=== PATIENT | female | born 1955 | race Caucasian/White ===

== ENCOUNTER → 2019-06-14 | Outpatient (CLI) | payer BC | END | disposition home or self-care (01) | LOC: RAH 08:44 | PROVIDERS: ATTEND Internal Medicine Cardiovascular Disease | DX: I37.1 Nonrheumatic pulmonary valve insufficiency (principal); I25.10 Atherosclerotic heart disease of native coronary artery without angina pectoris | CPT/HCPCS: 93306 ==

== ENCOUNTER → 2019-06-16 | Outpatient (CLI) | payer BC ==
[~2019-06-16] VITALS: Ht 165.1 cm; Wt 76.7 kg
[~2019-06-16] MED LIST: REGADENOSON 0.4 MG/5 ML PF SYG IVP SCH
== END | disposition home or self-care (01) ==
LOC: SHCH 09:05
PROVIDERS: ATTEND Internal Medicine Cardiovascular Disease
DX: I21.29 ST elevation (STEMI) myocardial infarction involving other sites (principal); I25.10 Atherosclerotic heart disease of native coronary artery without angina pectoris
CPT/HCPCS: 78452; 93017; 96374; A9500 ×2; J2785

== ENCOUNTER 2019-12-05 05:41 | Observation (INO) | payer BC ==
[2019-12-02 13:29] LABS: BASOPHILS % (AUTO) 0.8 % (0.0-5.0); EOSINOPHILS % (AUTO) 1.7 % (0.0-8.0); HEMATOCRIT 38.2 % (36-48); LYMPHOCYTES % (AUTO) 21.6 % (21.0-51.0); MEAN CORPUSCULAR HEMOGLOBIN 28.3 pg (27.0-33.0); MEAN CORPUSCULAR HGB CONC 32.2 g/dL (32.0-36.0); MEAN CORPUSCULAR VOLUME 87.8 fL (79-99); NEUTROPHILS % (AUTO) 68.6 % (40.0-77.0); PLATELET COUNT (AUTO) 263 K/uL (130-400); RED BLOOD CELL COUNT(AUTO) 4.35 MIL/uL (4.00-5.50); RED CELL DISTRIBUTION WIDTH 13.5 % (11.0-15.5)
[2019-12-02 13:51] LABS: CREATININE 0.9 mg/dL (0.5-1.5); POTASSIUM 4.7 mmol/L (3.5-5.1)
[2019-12-02 13:53] LABS: INR 0.96 (0.85-1.15); PARTIAL THROMBOPLASTIN TIME 24.1 SEC (26.3-35.5); PROTHROMBIN TIME 10.4 SEC (9.6-11.6)
[2019-12-02 14:02] VITALS: BP 193/75
[2019-12-02 14:11] LABS: APPEARANCE,URINE Clear (CLEAR); BILIRUBIN,URINE Negative (NEGATIVE); COLOR,URINE Yellow (YELLOW); GLUCOSE, URINE (UA) 500 mg/dL (NEGATIVE); KETONES,URINE Negative (NEGATIVE); LEUKOCYTE ESTERASE ,URINE Negative (NEGATIVE); NITRATE,URINE Negative (NEGATIVE); OCCULT BLOOD,URINE Negative (NEGATIVE); PH,URINE 7.5 (5.0-8.0); PROTEIN,URINE POS 1+ mg/dL (NEGATIVE); UROBILINOGEN,URINE 0.2 mg/dL (0.2-1.0)
[2019-12-02 14:24] LABS: BACTERIA,URINE None Seen /HPF (None Seen); MUCUS,URINE Few LPF (None Seen); RBC,URINE 0-1 /HPF (0-1); SQUAMOUS EPITHELIAL CELL,UR Few /HPF (0-2); WBC,URINE 0-1 /HPF (0-1)
[2019-12-05] VITALS (11 sets, daily range): BP systolic 135–198; BP diastolic 61–106
[~2019-12-05] VITALS: Ht 165.1 cm; Wt 77.5 kg
[~2019-12-05 05:41] MED LIST changes: +ACEB200 PO; +ASPI-556 PO; +CLOP75TA32 PO; +GABA-529 PO; +GLIM4TAB36 PO; +INSLAN SQ; +LEVO125T11 PO; +METF-446 PO; +PRAV40TA3 PO; +QUIN40TA19 PO; -REGADENOSON 0.4 MG/5 ML PF SYG IVP SCH
[2019-12-05] MEDS ORDERED: SODIUM CHLORIDE 0.9% 1000ML 1,000 ML IV ONE (06:04)
[2019-12-05] MEDS ORDERED: AEC81 PO (07:14)
[2019-12-05] MEDS ORDERED: IOHEXOL 350 MG/ML 100ML INFUS..BTL IV ONE (07:14)
[2019-12-05] MEDS ORDERED: LIDOCAINE HCL 2% 20ML ONE (07:14)
[2019-12-05] MEDS ORDERED: CLOP75TA14 PO (07:14)
[2019-12-05] MEDS ORDERED: IOHEXOL-350 50ML VIAL IV ONE ×2 (07:14→08:03)
[2019-12-05] MEDS ORDERED: HEPARIN SODIUM 1000UNIT/ML 10ML VIAL ONE (07:14)
[2019-12-05] MEDS ORDERED: MIDAZOLAM HCL 1 MG/ML 2ML VIAL ONE ×2 (07:32→07:46)
[2019-12-05] MEDS ORDERED: CLOPIDOGREL BISULFATE 75 MG TAB ONE (08:21)
[2019-12-05] MEDS ORDERED: ASPIRIN 81MG TAB.CHEW ONE (08:21)
[2019-12-05] MEDS ORDERED: ONDANSETRON HCL 4 MG/2 ML VIAL IVP PRN (08:45)
[2019-12-05] MEDS ORDERED: TEMAZEPAM 30 MG CAP PO PRN (08:45)
[2019-12-05] MEDS ORDERED: NITROGLYCERIN 50 MG/D5% WATER 1 BOT IV PRN (08:45)
[2019-12-05] MEDS ORDERED: ONDANSETRON HCL 4 MG/2 ML VIAL IVP SCH (08:45)
[2019-12-05] MEDS: PANTOPRAZOLE SODIUM 40 MG TABLET.DR PO SCH (09:00)
[2019-12-05] MEDS: CLOPIDOGREL BISULFATE 75 MG TAB PO SCH (09:00)
[2019-12-05] MEDS: ASPIRIN 81MG TAB.CHEW PO SCH (09:00)
--- NOTE | 2019-12-05 14:53 | NUR ---
CM NOTE/IA MEET WITH PATIENT IN ROOM. PER PATIENT, LIVES WITH SPOUSE AND MINOR CHILDREN AND MOTHER, INDEPENDENT WITH ADLS, HAS USE OF CANE AT TIMES, NO HOME HEALTH OR PROVIDER SERVICES, AND FEELS SAFE TO RETURN HOME ONCE DISCHARGED. Addendum: 12/05/19 at 1454 by TYRONE BARTON RN CM Amended: Links added. Addendum: 12/05/19 at 1455 by TYRONE BARTON RN CM ENTERED IN ERROR.
--- NOTE | 2019-12-05 14:56 | NUR ---
CM NOTE/IA MEET WITH PATIENT IN ROOM. PER PATIENT IS INDEPENDENT WITH ADLS, LIVES WITH SPOUSE AND ADULT SON, NO USE OF PROVIDER OR HOME HEALTH WELL DME, AND FEELS SAFE TO RETURN HOME ONCE DISCHARGED FROM HOSPITAL. Addendum: 12/05/19 at 1457 by TYRONE BARTON RN CM Amended: Links added.
[2019-12-05] MEDS: ACEBUTOLOL HCL 200 MG PO SCH (20:10)
[2019-12-05] MEDS: LISINOPRIL 40 MG TABLET PO SCH (20:12)
[2019-12-05] MEDS: GLIMEPIRIDE 2 MG TABLET PO SCH (20:13)
[2019-12-05] MEDS: GABAPENTIN 100 MG CAPSULE PO SCH (20:13)
[2019-12-05] MEDS: INSULIN HUMULIN R 100 UNIT/ML 3ML SQ SCH (20:24)
--- NOTE | 2019-12-05 20:25 | NUR ---
MEDS SHIFT ASSESSMENT DONE, PLEASE REFER TO CHART. DUE MEDS ADMINISTERED, TOLERATED WELL. KEPT RESTED AND COMFORTABLE CALL LIGHT WITHIN REACH. WILL MONITOR PT. Addendum: 12/05/19 at 2323 by LALA KRAMER RN RN Amended: Links added.
[2019-12-05] MEDS ORDERED: ATORVASTATIN CALCIUM 10 MG TABLET PO SCH (21:00)
[2019-12-06] VITALS: BP 135/58
--- NOTE | 2019-12-06 02:00 | NUR ---
ROUNDS PT RESTING WELL, FAIRLY ASLEEP. NO DISTRESS NOTED. KEPT UNDISTURBED FOR NOW. WILL MONITOR PT. CALL LIGHT WITHIN REACH.
[2019-12-06 04:00] VITALS: BP 146/63
[2019-12-06 05:08] LABS: MEAN CORPUSCULAR HEMOGLOBIN 28.2 pg (27.0-33.0); MEAN CORPUSCULAR HGB CONC 31.9 g/dL (32.0-36.0); MEAN CORPUSCULAR VOLUME 88.2 fL (79-99); RED BLOOD CELL COUNT(AUTO) 4.08 MIL/uL (4.00-5.50); RED CELL DISTRIBUTION WIDTH 13.8 % (11.0-15.5); WHITE BLOOD COUNT (AUTO) 5.8 K/uL (4.8-10.8)
[2019-12-06 05:38] LABS: CREATININE 0.9 mg/dL (0.5-1.5); POTASSIUM 4.4 mmol/L (3.5-5.1)
[2019-12-06] MEDS: INSULIN HUMULIN R 100 UNIT/ML 3ML SQ SCH (06:08)
--- NOTE | 2019-12-06 06:20 | NUR ---
MEDS AWAKENED PT FOR MEDS. PT DENIES ANY CONCERNS AT THIS TIME. NO DISTRESS NOTED. MEDICATED PT. KEPT RESTED. FOR MORE CARE.
[2019-12-06] MEDS ORDERED: LEVOTHYROXINE 125 MCG TABLET PO SCH (06:30)
--- NOTE | 2019-12-06 06:36 | NUR ---
MD DR JIMENEZ IN TO SEE PT. STATED WILL D/C PT TODAY AND WILL PLACE ORDERS HIMSELF.
[2019-12-06 08:15] VITALS: BP 143/76
[2019-12-06] MEDS: GLIMEPIRIDE 2 MG TABLET PO SCH (08:37)
[2019-12-06] MEDS: ASPIRIN 81MG TAB.CHEW PO SCH (08:37)
[2019-12-06] MEDS: CLOPIDOGREL BISULFATE 75 MG TAB PO SCH (08:38)
[2019-12-06] MEDS: LISINOPRIL 40 MG TABLET PO SCH (08:38)
[2019-12-06] MEDS: GABAPENTIN 100 MG CAPSULE PO SCH (08:39)
[2019-12-06] MEDS: ACEBUTOLOL HCL 200 MG PO SCH (08:42)
[2019-12-06] MEDS: PANTOPRAZOLE SODIUM 40 MG TABLET.DR PO SCH (08:42)
--- NOTE | 2019-12-06 10:43 | NUR ---
DISCHARGE DISCHARGE INSTRUCTIONS GIVEN TO PATIENT, VERBALIZED UNDERSTANDING. NO NEW PRESCRIPTIONS GIVEN. IV DISCONTINUED. TELEPAK REMOVED. PATIENT HAS FOLLOW UP WITH DR DE LEON ON November AT 0910 AM.
== END 2019-12-06 10:46 | disposition home or self-care (01) ==
LOC: DAH 05:41 → DAHIP 05:42 → DAH 05:42 → 4AH 09:14
PROVIDERS: ADMIT Internal Medicine Cardiovascular Disease; ATTEND Internal Medicine Cardiovascular Disease
DX: I25.119 Atherosclerotic heart disease of native coronary artery with unspecified angina pectoris (principal); I25.709 Atherosclerosis of coronary artery bypass graft(s), unspecified, with unspecified angina pectoris; E11.40 Type 2 diabetes mellitus with diabetic neuropathy, unspecified; I10 Essential (primary) hypertension; E03.9 Hypothyroidism, unspecified; E78.5 Hyperlipidemia, unspecified; I65.22 Occlusion and stenosis of left carotid artery; I47.2 Ventricular tachycardia; Z79.899 Other long term (current) drug therapy; Z79.890 Hormone replacement therapy; Z79.82 Long term (current) use of aspirin; Z79.84 Long term (current) use of oral hypoglycemic drugs; Z79.4 Long term (current) use of insulin; Z88.8 Allergy status to other drugs, medicaments and biological substances; Z95.5 Presence of coronary angioplasty implant and graft
CPT/HCPCS: 36415 ×3; 71045; 80048 ×2; 80061; 81001; 82948 ×5; 85025; 85027; 85347; 85610; 85730; 93005; 93459; 96372; A4215; A4216; A4221; A4222; A4223 ×3; A4606; A4663; C1760; C1769 ×2; C1874; C1887; C1894; C9604; G0378 ×20; J1644 ×2; J1815; J2250 ×2; J3490; J7030; Q9965; Q9967 ×3; 99156; 99157

== ENCOUNTER → 2020-02-14 | Outpatient (CLI) | payer BC ==
[~2020-02-14] MED LIST changes: +AEC81 PO; -ASPI-556 PO; +CLOP75TA14 PO; -CLOP75TA32 PO
== END | disposition home or self-care (01) ==
LOC: RAH 11:44
PROVIDERS: ATTEND Physical Medicine & Rehabilitation
DX: M25.511 Pain in right shoulder (principal)
CPT/HCPCS: 73030

== ENCOUNTER → 2020-04-12 | Outpatient (CLI) | payer BC | END | disposition home or self-care (01) | LOC: SHCH 12:37 | PROVIDERS: ATTEND Internal Medicine Cardiovascular Disease | DX: I65.29 Occlusion and stenosis of unspecified carotid artery (principal) | CPT/HCPCS: 93880 ==

== ENCOUNTER → 2020-11-23 | Outpatient (CLI) | payer BC ==
[2020-11-23 14:28] LABS: CREATININE 0.9 mg/dL (0.5-1.5)
== END | disposition home or self-care (01) ==
LOC: LAB 13:22
PROVIDERS: ATTEND Internal Medicine Gastroenterology
DX: R10.30 Lower abdominal pain, unspecified (principal)
CPT/HCPCS: 36415; 82565; 84520

== ENCOUNTER → 2020-11-26 | Outpatient (CLI) | payer BC ==
[~2020-11-26] MED LIST changes: +IOHEXOL-350 75 ML VIAL IV ONE
== END | disposition home or self-care (01) ==
LOC: RAH 08:50
PROVIDERS: ATTEND Internal Medicine Gastroenterology
DX: I25.10 Atherosclerotic heart disease of native coronary artery without angina pectoris (principal); K57.90 Diverticulosis of intestine, part unspecified, without perforation or abscess without bleeding; M48.07 Spinal stenosis, lumbosacral region; Z90.49 Acquired absence of other specified parts of digestive tract
CPT/HCPCS: 74178; Q9967

== ENCOUNTER → 2021-10-25 | Outpatient (CLI) | payer MEDICARE ==
[~2021-10-25] MED LIST changes: +CHOL2000 PO; -IOHEXOL-350 75 ML VIAL IV ONE; -LEVO125T11 PO; +LEVO137C4 PO; +MAGN500C4 PO; +MULT-1367 PO; +NITR0.4T50 SL; +OMEG-125 PO; -QUIN40TA19 PO; +QUIN40TA37 PO
== END | disposition home or self-care (01) ==
LOC: SHCH 10:00
PROVIDERS: ATTEND Internal Medicine Cardiovascular Disease
DX: I11.9 Hypertensive heart disease without heart failure (principal); E11.9 Type 2 diabetes mellitus without complications
CPT/HCPCS: 93306

== ENCOUNTER → 2021-10-29 | Outpatient (CLI) | payer MEDICARE | END | disposition home or self-care (01) | LOC: SHCH 10:41 | PROVIDERS: ATTEND Internal Medicine Cardiovascular Disease | DX: I65.23 Occlusion and stenosis of bilateral carotid arteries (principal) | CPT/HCPCS: 93880 ==

== ENCOUNTER → 2022-05-28 | Outpatient (CLI) | payer MEDICARE ==
[~2022-05-28] MED LIST changes: -ACEB200 PO; +ACEB200C18 PO; +ALBUTEROL 0.083% 2.5 MG/3 ML INH IH ONE; +CLOP-31 PO; -CLOP75TA14 PO
== END | disposition home or self-care (01) ==
LOC: RESP 13:05
PROVIDERS: ATTEND Internal Medicine Cardiovascular Disease
DX: R06.00 Dyspnea, unspecified (principal)
CPT/HCPCS: 94060

== ENCOUNTER → 2022-07-29 | Outpatient (CLI) | payer MEDICARE ==
[~2022-07-29] MED LIST changes: -ALBUTEROL 0.083% 2.5 MG/3 ML INH IH ONE
== END | disposition home or self-care (01) ==
LOC: LAB 13:40
PROVIDERS: ATTEND Internal Medicine Cardiovascular Disease
DX: I25.10 Atherosclerotic heart disease of native coronary artery without angina pectoris (principal)
CPT/HCPCS: 36415; 84132

== ENCOUNTER → 2022-11-28 | Outpatient (CLI) | payer MEDICARE ==
[2022-11-28 15:18] LABS: BASOPHILS % (AUTO) 0.9 % (0.0-5.0); EOSINOPHILS % (AUTO) 1.8 % (0.0-8.0); HEMATOCRIT 40.5 % (36-48); LYMPHOCYTES % (AUTO) 26.9 % (21.0-51.0); MEAN CORPUSCULAR HEMOGLOBIN 29.3 pg (27.0-33.0); MEAN CORPUSCULAR HGB CONC 31.9 g/dL (32.0-36.0); MONOCYTES % (AUTO) 12.2 % (3.0-13.0); PLATELET COUNT (AUTO) 235 K/uL (130-400); RED CELL DISTRIBUTION WIDTH 12.7 % (11.0-15.5); WHITE BLOOD COUNT (AUTO) 4.4 K/uL (4.8-10.8)
[2022-11-28 16:07] LABS: POTASSIUM 4.9 mmol/L (3.5-5.1); THYROID STIMULATING HORMONE 0.45 uIU/mL (0.36-3.74)
== END | disposition home or self-care (01) ==
LOC: LAB 11:35
PROVIDERS: ATTEND Internal Medicine Cardiovascular Disease
DX: I25.10 Atherosclerotic heart disease of native coronary artery without angina pectoris (principal); I10 Essential (primary) hypertension; E03.9 Hypothyroidism, unspecified; E78.5 Hyperlipidemia, unspecified; I65.22 Occlusion and stenosis of left carotid artery; I47.1 Supraventricular tachycardia; Z95.1 Presence of aortocoronary bypass graft
CPT/HCPCS: 36415; 80048; 83880; 84443; 84484; 85025

== ENCOUNTER → 2022-12-24 | Outpatient (CLI) | payer MEDICARE ==
[~2022-12-24] MED LIST changes: +IOHEXOL 350 MG/ML 100ML INFUS..BTL IV ONE; +METOPROLOL TARTRATE 1 MG/ML 5ML VIAL IV ONE
== END | disposition home or self-care (01) ==
LOC: RAH 08:19
PROVIDERS: ATTEND Internal Medicine Cardiovascular Disease
DX: I25.10 Atherosclerotic heart disease of native coronary artery without angina pectoris (principal); M47.815 Spondylosis without myelopathy or radiculopathy, thoracolumbar region
CPT/HCPCS: 75574; Q9967; J3490

== ENCOUNTER → 2023-07-18 | Outpatient (CLI) | payer MEDICARE ==
[~2023-07-18] MED LIST changes: -IOHEXOL 350 MG/ML 100ML INFUS..BTL IV ONE; -METOPROLOL TARTRATE 1 MG/ML 5ML VIAL IV ONE
== END | disposition home or self-care (01) ==
LOC: SHCH 13:12
PROVIDERS: ATTEND Internal Medicine Cardiovascular Disease
DX: I34.0 Nonrheumatic mitral (valve) insufficiency (principal); I25.10 Atherosclerotic heart disease of native coronary artery without angina pectoris; G45.1 Carotid artery syndrome (hemispheric)
CPT/HCPCS: 93306; 93880

== ENCOUNTER → 2023-08-11 | Outpatient (CLI) | payer MEDICARE ==
[2023-08-11 16:45] LABS: POTASSIUM 4.9 mmol/L (3.5-5.1)
== END | disposition home or self-care (01) ==
LOC: LAB 15:55
PROVIDERS: ATTEND Internal Medicine Cardiovascular Disease
DX: I10 Essential (primary) hypertension (principal)
CPT/HCPCS: 36415; 80048

== ENCOUNTER → 2023-10-09 | Outpatient (CLI) | payer MEDICARE ==
[2023-10-09 15:46] LABS: CREATININE 0.9 mg/dL (0.5-1.0); POTASSIUM 4.7 mmol/L (3.5-5.1)
== END | disposition home or self-care (01) ==
LOC: LAB 13:47
PROVIDERS: ATTEND Internal Medicine Cardiovascular Disease
DX: I10 Essential (primary) hypertension (principal)
CPT/HCPCS: 36415; 80048; 83880

== ENCOUNTER → 2023-10-13 | Outpatient (CLI) | payer MEDICARE ==
[~2023-10-13] MED LIST changes: +IOHEXOL 350 MG/ML 100ML INFUS..BTL IV ONE; +METOPROLOL TARTRATE 1 MG/ML 5ML VIAL IV ONE
== END | disposition home or self-care (01) ==
LOC: RAH 10:44
PROVIDERS: ATTEND Internal Medicine Cardiovascular Disease
DX: I25.10 Atherosclerotic heart disease of native coronary artery without angina pectoris (principal); M47.815 Spondylosis without myelopathy or radiculopathy, thoracolumbar region; Z98.890 Other specified postprocedural states
CPT/HCPCS: 75574; J3490; Q9967

== ENCOUNTER → 2024-02-10 | Outpatient (CLI) | payer MEDICARE ==
[~2024-02-10] MED LIST changes: -AEC81 PO; -CHOL2000 PO; -CLOP-31 PO; -GABA-529 PO; +GABA300C PO; -IOHEXOL 350 MG/ML 100ML INFUS..BTL IV ONE; +LEVO125C4 PO; -LEVO137C4 PO; +LISI40TA9 PO; -MAGN500C4 PO; -METOPROLOL TARTRATE 1 MG/ML 5ML VIAL IV ONE; -MULT-1367 PO; -OMEG-125 PO; -QUIN40TA37 PO
[2024-02-10 12:14] LABS: BASOPHILS # (AUTO) 0.04 K/uL (0.00-0.20); BASOPHILS % (AUTO) 0.7 % (0.0-5.0); EOSINOPHILS # (AUTO) 0.15 K/uL (0.00-0.70); EOSINOPHILS % (AUTO) 2.6 % (0.0-8.0); IMMATURE GRANULOCYTE ABSOLUTE 0.02 K/uL (0-1); LYMPHOCYTES # (AUTO) 1.5 K/uL (1.0-4.8); LYMPHOCYTES % (AUTO) 26.4 % (21.0-51.0); MEAN CORPUSCULAR HEMOGLOBIN 29.7 pg (27.0-33.0); MEAN CORPUSCULAR HGB CONC 32.7 g/dL (32.0-36.0); MEAN CORPUSCULAR VOLUME 90.9 fL (79-99); MONOCYTES # (AUTO) 0.5 K/uL (0.1-1.0); MONOCYTES % (AUTO) 9.1 % (3.0-13.0); NEUTROPHILS # (AUTO) 3.5 K/uL (1.8-7.7); NEUTROPHILS % (AUTO) 60.8 % (40.0-77.0); PLATELET COUNT (AUTO) 243 K/uL (130-400); RED BLOOD CELL COUNT(AUTO) 4.07 MIL/uL (4.00-5.50); RED CELL DISTRIBUTION WIDTH 12.1 % (11.0-15.5); WHITE BLOOD COUNT (AUTO) 5.7 K/uL (4.8-10.8)
== END | disposition home or self-care (01) ==
LOC: LAB 09:52
PROVIDERS: ATTEND Internal Medicine Cardiovascular Disease
DX: I25.10 Atherosclerotic heart disease of native coronary artery without angina pectoris (principal)
CPT/HCPCS: 36415; 85025

== ENCOUNTER → 2024-03-11 | Outpatient (CLI) | payer MEDICARE | END | disposition home or self-care (01) | LOC: SHCH 10:53 | PROVIDERS: ATTEND Internal Medicine Cardiovascular Disease | DX: G45.1 Carotid artery syndrome (hemispheric) (principal) | CPT/HCPCS: 93880 ==

== ENCOUNTER → 2024-06-07 | Outpatient (CLI) | payer MEDICARE ==
[~2024-06-07] MED LIST changes: +PERFLUTREN PROTEIN-A MICROSPHR 0.22 MG/ML VIAL IV ONE
--- NOTE | 2024-06-08 14:53 | HMCSR ---
APPROVED REPORT EXAM: Two-dimensional and M-mode echocardiogram with Doppler and color Doppler. INDICATION ICD: G45.9 Transient cerebral ischemic attack, unspecified Contrast Details Indication: Endocardial border delineation Agent/Amount Used: Optison 2.5mL 2D Dimensions RVDd3.0 cmLVEF(%)52.9 (>50%)LVED Vol(simp.)65.3 mL IVSd0.8 (0.7-1.1cm)FS(%)27 %LVES Vol(simp.)31.8 mL LVDd4.8 (3.8-5.6cm)LVOT diam2.2 (1.8-2.4cm)LVEF(%, simp.)51 % PWd1.1 (0.7-1.1cm)LA ESV INDEX (4CH)24.40 mL/m2 IVSs0.9 cmLA ESV INDEX (2CH)31.10 mL/m2 LVDs3.5 (2.5-4.0cm)LA ESV INDEX (BP)28.90 mL/m2 PWs1.2 cm M-Mode Dimensions LA (MM)3.8 (1.6-4.0cm) Ao Root(MM)3.6 (2.0-3.7cm) Aortic Valve AoV VTI0.3 mAo Mean GR5.0 mmHgLVOT VTI0.18 m DIA (VMAX)2.4 cm2AVA (VTI) 2.4 cm2 Mitral Valve MV E Vmax69.4 cm/sDECEL Ltsm717 ms MV A Ziks816.4 cm/sP 1/2 T110 ms E/A ratio0.7MVA (PHT)2.0 cm2 MR Max PG17 mmHg TDI E/E' Ugnhmx72.9E/E' Zrwmtgr98.8 Medial E' Peak V4.10 cm/sLateral E' Peak V4.40 cm/s Tricuspid Valve TR Vmax2.1 m/s TR Peak GR18.4 mmHg Left Ventricle The left ventricle is normal size. Mild apical hypokinesis. There is normal left ventricular wall thi ckness. LVEF is low normal 50-55%. Stage I diastolic dysfunction. Right Ventricle The right ventricle is normal size. The right ventricular systolic function is normal. Atria The left atrium size is normal. The right atrium size is normal. Aortic Valve The aortic valve is normal in structure. Trivial aortic regurgitation is present. There is no aortic valvular stenosis. Mitral Valve Posterior mitral valve annular calification. There is trace of mitral valve regurgitation noted. The re is no mitral valve stenosis. Tricuspid Valve The tricuspid valve is normal in structure. There is trace of tricuspid valve regurgitation noted. Pulmonic Valve The pulmonary valve is normal in structure. There is no pulmonic valvular regurgitation. Great Vessels The aortic root is normal in size. The IVC is normal in size and collapses >50% with inspiration. Pericardium There is no pericardial effusion. Other Information Quality : Adequate Conclusion LVEF is low normal 50-55%. Stage I diastolic dysfunction. Mild apical hypokinesis. There is trace of mitral valve regurgitation noted.
== END | disposition home or self-care (01) ==
LOC: RAH 14:57
PROVIDERS: ATTEND Internal Medicine Cardiovascular Disease
DX: I08.0 Rheumatic disorders of both mitral and aortic valves (principal); G45.9 Transient cerebral ischemic attack, unspecified
CPT/HCPCS: C8929; Q9956

== ENCOUNTER → 2024-11-04 | Outpatient (CLI) | payer MEDICARE ==
[~2024-11-04] MED LIST changes: +IOHEXOL 350 MG/ML 100ML INFUS..BTL IV ONE; -LEVO125C4 PO; +LEVO125C5 PO; -PERFLUTREN PROTEIN-A MICROSPHR 0.22 MG/ML VIAL IV ONE; +metoPROLOL tartRATE 1 MG/ML 5ML VIAL IV ONE
--- NOTE | 2024-11-04 14:27 | HMCIMG ---
CT OF THE CHEST WITH CONTRAST- CT Cardiac Angio co-interpretation This is done as part of the CT cardiac angiogram study. The interpretation of the coronary arteries will be done by mercerizer machine operator in a separate report. History: over-read Comparison: none CT Dose Index (CTDI): 77.90 mGy Dose Length Product (DLP): 493.40 total mGy PROTOCOL: Examination is done at 2.5 millimeter volumetric acquisition after contrast administration with Isovue 370, 100 cc IV, without complications. Photography is done at 5 millimeter thick intervals for the thorax. The examination begins above the heart and therefore the lung apices are incompletely included. The rest of the left lung is included but the right lung is only included up to its middle third. The periphery of the right lung is not included in the study. FINDINGS: The visualized part of the airway is preserved. The bony and soft tissue structures of the chest wall are unremarkable. The aorta is unremarkable. No mediastinal lymphadenopathy is seen. The lung windows demonstrate no worrisome pulmonary nodules, masses or infiltrates. There is no evidence of pulmonary embolism in the visualized lung segments. The upper abdominal views are unremarkable. Impression: No significant abnormalities identified.
--- NOTE | 2024-11-09 09:05 | CARDIOLOGY ---
RAD REPORT: [facility] CT ANGIO RADIOLOGY REPORT: CORONARY CT ANGIOGRAPHY DATE: November 09, 2024 QUALITY: Excellent CLINICAL HISTORY AND INDICATION: [CABG ] TECHNIQUE: After obtaining a preliminary dope maintenance worker image, contrast imaging performed on an [place] [id number] scanner. A dedicated, limited window, coronary imaging protocol was used, with single breath-hold, retrospective ECG gating, and automated arrhythmia rejection. 100 cc of low osmolar contrast agent: Omnipaque 350 was delivered via a 18-gauge IV catheter in the right antecubital fossa, using a power injector and followed by 60 cc of normal saline bolus as a chaser. Collimated images were reformatted at 0.5 mm intervals, and sent to an offline independent workstation for interpretation, using 3D anatomic reconstructions: Curved multiplanar reconstructions, maximum intensity projections, and multiplanar imaging. No metoprolol was administered prior to scanning due to low baseline heart rate. 0.4 mg SL nitroglycerin was given. CORONARY ARTERY DESCRIPTIONS: The coronary arteries arise in normal position. Left main coronary artery: Normal caliber vessel that bifurcates into the LAD and LCx. Severe distal left main stenosis. Left anterior descending coronary artery: Normal caliber vessel and gives rise to diagonal and septal branches. Severe proximal to mid LAD stenosis. FOAM TANK LAMINATOR of mid LAD. Left circumflex coronary artery: Normal caliber, nondominant and gives rise to a large OM branch. Heavily calcified proximal to mid LCx with severe stenosis. Right coronary artery: Large, dominant vessel giving rise to the PL and PDA branches. There is a drug eluting stent in the proximal RCA with severe in-stent restenosis. The PDA is small and due to dense calcification, not able to quantitate luminal stenosis. Patent LEDESMA to LAD. Recommend further workup of the LCx and RCA in-stent restenosis. Thoracic Aorta: Normal diameter. Olamide Dhillon MD Cardiovascular Disease [facility] OLAMIDE DHILLON MD November 09, 2024 09:05
== END | disposition home or self-care (01) ==
LOC: RAH 07:57 → DAH 07:57
PROVIDERS: ATTEND Internal Medicine Cardiovascular Disease
DX: R07.9 Chest pain, unspecified (principal)
CPT/HCPCS: 75574; J3490 ×2; Q9967

== ENCOUNTER 2024-11-25 06:02 | Observation (INO) | payer MEDICARE ==
[2024-11-23 13:02] VITALS: BP 162/72; PULSE 72; RESP 18; TEMP 97.5
[2024-11-23 13:02] LABS: BASOPHILS # (AUTO) 0.04 K/uL (0.00-0.20); BASOPHILS % (AUTO) 0.7 % (0.0-5.0); EOSINOPHILS # (AUTO) 0.12 K/uL (0.00-0.70); HEMATOCRIT 38.5 % (36-48); IMMATURE GRANULOCYTE ABSOLUTE 0.01 K/uL (0-1); LYMPHOCYTES # (AUTO) 1.3 K/uL (1.0-4.8); LYMPHOCYTES % (AUTO) 21.3 % (21.0-51.0); MEAN CORPUSCULAR HEMOGLOBIN 29.4 pg (27.0-33.0); MEAN CORPUSCULAR HGB CONC 32.2 g/dL (32.0-36.0); MEAN CORPUSCULAR VOLUME 91.2 fL (79-99); MONOCYTES # (AUTO) 0.4 K/uL (0.1-1.0); MONOCYTES % (AUTO) 7.5 % (3.0-13.0); NEUTROPHILS % (AUTO) 68.3 % (40.0-77.0); PLATELET COUNT (AUTO) 256 K/uL (130-400); RED BLOOD CELL COUNT(AUTO) 4.22 MIL/uL (4.00-5.50); RED CELL DISTRIBUTION WIDTH 12.1 % (11.0-15.5); WHITE BLOOD COUNT (AUTO) 5.9 K/uL (4.8-10.8)
[2024-11-23 13:09] LABS: APPEARANCE,URINE CLEAR (CLEAR); BILIRUBIN,URINE NEGATIVE (NEGATIVE); COLOR,URINE YELLOW (YELLOW); GLUCOSE, URINE (UA) >=1000 mg/dL (NEGATIVE); KETONES,URINE NEGATIVE (NEGATIVE); LEUKOCYTE ESTERASE ,URINE NEGATIVE Leu/uL (NEGATIVE); NITRATE,URINE NEGATIVE (NEGATIVE); OCCULT BLOOD,URINE NEGATIVE (NEGATIVE); PH,URINE 6.5 (5.0-8.0); PROTEIN,URINE 30 mg/dL (NEGATIVE); UROBILINOGEN,URINE 0.2 mg/dL (0.2-1.0)
[2024-11-23 13:10] LABS: ADD UA MICROSCOPIC YES
[2024-11-23 13:11] LABS: CREATININE 0.9 mg/dL (0.5-1.0); POTASSIUM 5.4 mmol/L (3.5-5.1)
[2024-11-23 13:13] LABS: INR 1.03 (0.85-1.15); PROTHROMBIN TIME 10.9 SEC (9.6-11.6)
[2024-11-23 13:15] LABS: BACTERIA,URINE RARE /HPF (None Seen); RBC,URINE 0-1 /HPF (0-1); SQUAMOUS EPITHELIAL CELL,UR RARE /HPF (0-2); WBC,URINE 0-1 /HPF (0-1)
[2024-11-23 13:15] LABS: PARTIAL THROMBOPLASTIN TIME 24.7 SEC (26.3-35.5)
[2024-11-23 13:42] LABS: B-TYPE NATRIURETIC PEPTIDE 357 pg/mL (0-100)
--- NOTE | 2024-11-23 13:58 | HMCIMG ---
CHEST 1VW REASON: PRE OP COMPARISON: 11/10/2023 FINDINGS: Single view of the chest was obtained. Lungs are clear. Heart size is normal. There is no pulmonary vascular congestion. Mediastinum and bony thorax appear unremarkable. There is been a previous median sternotomy. IMPRESSION: 1. No acute process seen in the chest and no interval change.
--- NOTE | 2024-11-23 15:51 | EKG ---
[facility] Test Date: 2024-11-23 Test Time: 12:46:16 Pat Name: KILO SMITH Department: [facility] Room: Gender: F Gas Line Servicer: [id number] : [id number] Requested By: HENNY HUTSON Order Number: [id number] Reading MD: Henny Hutson Measurements Intervals [place] Rate: 75 P: 44 MO: 212 QRS: -72 QRSD: 132 T: 116 QT: 416 QTc: 465 Interpretive Statements Sinus rhythm Borderline prolonged MO interval Right bundle branch block Inferior infarct, old Nonspecific T abnormalities, lateral leads Compared to ECG 11/10/2023 11:56:17 Myocardial infarct finding now present T-wave abnormality now present Left-axis deviation no longer present Electronically Signed On 11-24-2024 13:54:38 CDT by Henny Hutson Please click the below link to view image of tracing.
--- NOTE | 2024-11-23 16:11 | NUR ---
RE: LABS REPORTED BMP RESULTS TO KRYS CARVALHO NP. RECEIVED ORDERS TO REPEAT POTASSIUM ON DAY OF PROCEDURE.
[~2024-11-25] VITALS: Ht 165.1 cm; Wt 69.9 kg
[2024-11-25] VITALS (16 sets, daily range): BP systolic 114–161; BP diastolic 52–99; PULSE 71–80; RESP 17–20; TEMP 97–98.5; O2SAT 97–99
[~2024-11-25 06:02] MED LIST changes: +ASPI-1443 PO; -IOHEXOL 350 MG/ML 100ML INFUS..BTL IV ONE; +LISI40TA15 PO; -LISI40TA9 PO; -PRAV40TA3 PO; +PRAV40TA62 PO; -metoPROLOL tartRATE 1 MG/ML 5ML VIAL IV ONE
--- NOTE | 2024-11-25 06:30 | NUR ---
PT TOLD TO REMOVE ALL CLOTHING SHE TOLD TANIA AND MY SELF ON 2 DIFFERENT OCCASIONS SHE TOLD US THIS IS HER 8TH TIME THEY USUALLY LOWER DOWN HER UNDERWEAR FOR PROCEDURE. PT LEFT THEM ON
[2024-11-25] MEDS ORDERED: LIDOCAINE HCL 400MG/20ML VIAL ONE (07:09)
[2024-11-25] MEDS ORDERED: IOHEXOL 350 MG/ML 100ML INFUS..BTL IV ONE (07:09)
[2024-11-25] MEDS ORDERED: HEParin-NS 1,000 UNIT/500 ML 1,000 ML IV ONE (07:09)
[2024-11-25] MEDS ORDERED: NITROGLYCERIN 50MG VIAL ONE (07:09)
[2024-11-25] MEDS ORDERED: HEParin 10,000 UNIT/10ML (1,000 UNIT/ML) VIAL ONE (07:09)
[2024-11-25] MEDS ORDERED: 0.9%NACL 1000ML 1,000 ML IV SCH (07:30)
[2024-11-25] MEDS ORDERED: MIDAZOLAM HCL 1 MG/ML 2ML VIAL ONE ×2 (07:31→07:41)
[2024-11-25] MEDS ORDERED: FENTanyl CITRate PF 50 MCG/1 ML 2ML VIAL ONE (07:31)
[2024-11-25] MEDS ORDERED: ATROPINE 1MG SYG IVP ONE (08:02)
[2024-11-25] MEDS ORDERED: HEParin-NS 1,000 UNIT/500 ML 500 ML IV ONE (08:07)
[2024-11-25] MEDS ORDERED: ASPIRIN 325MG EC TAB PO ONE (08:30)
[2024-11-25] MEDS ORDERED: cloPIDOgrel 300MG TAB ONE (08:30)
[2024-11-25] MEDS: INSULIN GLARgine 100 UNITS/ML 10 ML VIAL SQ SCH ×2 (09:00→21:00)
[2024-11-25] MEDS: GABAPENTIN 300 MG CAPSULE PO SCH (09:00)
[2024-11-25] MEDS: LISINOPRIL 40 MG TABLET PO SCH (09:00)
--- NOTE | 2024-11-25 09:09 | PRN ---
Cath Procedure Report CATH PROCEDURE REPORT CARDIAC CATHETERIZATION REPORT Date of Service: Nov 25, 2024 After informed consent the patient was prepped and draped in the usual fashion. She received a total of 4 mg of Versed to achieve adequate level of conscious sedation. She then received 15 cc of xylocaine in the right inguinal area. A six Congolese sheath was introduced into the right femoral artery using modified Seldinger technique. A pigtail catheter was then advanced over guidewire across the aortic valve. Wire was removed hemodynamics measured and a pullback with continuous hemodynamic monitoring was performed and catheter was removed. A Cedric four left six Congolese diagnostic catheter was advanced over guidewire to the aortic root. Wire was removed and catheter engaged into the left main coronary artery. The left coronary system was visualized multiple planes the catheter was removed. A Cedric four right six Congolese diagnostic catheter was advanced over guidewire to the aortic root. Wire was removed and catheter enga ged into the nisqually right coronary artery which was visualized multiple planes. The catheter was then manipulated to the origin of the LEDESMA graft which was visualized in multiple planes. Previous catheterization of documented occlusion of the vein graft to the right coronary artery and obtuse marginal artery. The catheter was removed. Findings: The right coronary artery is a right-dominant vessel. There are two proximal overlapping stents in the right coronary artery with a 70% InStent restenosis. The posterolateral branches free of obstruction. There was a small branch between the PDA and posterolateral branch which is occluded. The posterolateral branch has a 70% ostial stenosis but is a small 1 mm vessel. There was collateral filling of the PDA in a retrograde fashion from the left coronary system. The left main coronary artery has a 70% distal stenosis. The LAD is 100% occluded after the 1st diagonal artery. There was a widely patent LEDESMA graft to the LAD. The distal LAD has diffuse mild disease. The circumflex artery is a nondominant vessel. There was a 70% proximal stenosis. There was some collateral filling to the obtuse marginal artery as well. At that point decision was made to perform FFR on the InStent restenosis. A Cedric four right seven Congolese guiding catheter with side holes was advanced over guidewire to the aortic root. Wire was removed and catheter engaged into the nisqually right coronary artery. The patient received 3000 units of heparin. A flow wire was placed into the proximal RCA before the stenosis and then to the mid RCA beyond the stenosis and FFR was 0.84. It was recommended to proceed wit h stenting of the InStent restenosis. The patient received an additional 5000 units of heparin. The flow wire was removed and replaced with a choice PT extra-support wire. A noncompliant 3.5 x 12 mm balloon was placed to the area of stenosis and dilated to 20 atmospheres. The balloon was removed and a 3.5 x 12 mm drug-eluting stent was placed across the area of stenosis and dilated to 18 atmospheres. The balloon was removed with a noncompliant 3.5 x 12 mm balloon was placed in the stent and dilated to 21 atmospheres. Stenosis was reduced from 70% to 0% with normal JESUS flow. ACT postprocedure was greater than 400. The patient will be transferred to the floor for line management. The patient has some residual disease in the left main and circumflex artery. Previously when the right coronary artery was stented she was asymptomatic with this. Plans are to observe on medical management. She continues to be symptomatic we will bring her back for high-risk stenting of the distal left main and proximal circumflex artery which may require Impella support even though this is a protected left main. Summary: Successful drug-eluting stent to the InStent restenosis in the proximal RCA. Report dictated by HENNY Garsia MD, MD Nov 25, 2024 09:09
[2024-11-25] MEDS: ondanSETRON 4MG INJ IVP SCH ×2 (09:30→14:02)
[2024-11-25] MEDS ORDERED: NITROGLYCERIN 50MG/D5W 250ML 1 BOT IV PRN (09:30)
[2024-11-25] MEDS ORDERED: acetaMINOPHEN WITH coDEINE 1 TAB TAB PO PRN ×2 (09:30)
[2024-11-25] MEDS ORDERED: TEMAZepam 30 MG CAP PO PRN (09:30)
[2024-11-25] MEDS: morPHINE 4 MG SYG IVP SCH ×2 (11:00→14:02)
[2024-11-25 11:30] LABS: HEMATOCRIT 35.4 % (36-48)
[2024-11-25] MEDS: acetaMINOPHEN 325 MG TAB PO PRN (12:02)
[2024-11-25 15:07] LABS: HEMATOCRIT 35.3 % (36-48)
[2024-11-25] MEDS: ondanSETRON 4MG INJ IVP PRN (20:43)
[2024-11-25] MEDS: GLIMEPIRIDE 2 MG TABLET PO SCH (20:43)
[2024-11-25] MEDS: atorVAStatin 10 MG TABLET PO SCH (21:00)
[2024-11-26 03:41] VITALS: BP 128/51; PULSE 76; RESP 20; TEMP 97.8
[2024-11-26] MEDS: levoTHYROxine 125 MCG TABLET PO SCH (06:04)
[2024-11-26 08:00] VITALS: O2SAT 98
[2024-11-26 08:14] VITALS: BP 131/59; PULSE 71; RESP 16; TEMP 97.5
[2024-11-26] MEDS: PANTOPrazole 40 MG TAB DR PO SCH (09:02)
[2024-11-26] MEDS: ATENOLOL 50 MG TABLET PO SCH (09:02)
[2024-11-26] MEDS: ASPIRIN 81MG CHEW TAB PO SCH (09:02)
[2024-11-26] MEDS: cloPIDOgrel 75MG TAB PO SCH (09:05)
--- NOTE | 2024-11-26 11:36 | DS ---
[facility] CARDIOLOGY DISCHARGE SUMMARY Date of Admission: Nov 25, 2024 at 06:03 Date of Discharge: Nov 26, 2024 Discharge Diagnoses: Coronary artery disease with 70% In stent restenosis in the proximal RCA Status post successful PTCA and stenting with a 3.5 x 12 mm checo Cataño drug- eluting stent to the proximal RCA In-stent restenosis (70% to 0%) 11/25/[address] Eyad Hutson Persisting 70% stenosis to the distal left main and proximal circumflex to be addressed at a later time 70% posterolateral branch stenosis in a small 1 mm vessel with collateral filling of the PDA [id number] 100% occluded LAD after the 1st diagonal with a widely patent LEDESMA graft to the LAD and the distal LAD has diffuse mild disease The left circumflex artery was a nondominant vessel with 70% proximal stenosis There was a small branch between the right PDA and posterolateral branch which was occluded Principle Procedures Performed: Left heart catheterization with PTCA and stenting of the 70% In-stent restenosis in the proximal RCA stent by Dr. Eyad Hutson Date of Service: Nov 25, 2024 Findings: The right coronary artery is a right-dominant vessel. There are two proximal overlapping stents in the right coronary artery with a 70% InStent restenosis. The posterolateral branches free of obstruction. There was a small branch between the PDA and posterolateral branch which is occluded. The posterolateral branch has a 70% ostial stenosis but is a small 1 mm vessel. There was collateral filling of the PDA in a retrograde fashion from the left coronary system. The left main coronary artery has a 70% distal stenosis. The LAD is 100% occluded after the 1st diagonal artery. There was a widely patent LEDESMA graft to the LAD. The distal LAD has diffuse mild disease. The circumflex artery is a nondominant vessel. There was a 70% proximal stenosis. There was some collateral filling to the obtuse marginal artery as well. At that point decision was made to perform FFR on the InStent restenosis. A flow wire was placed into the proximal RCA before the stenosis and then to the mid RCA beyond the stenosis and FFR was 0.84. It was recommended to proceed with stenting of the InStent restenosis. A noncompliant 3.5 x 12 mm balloon was placed to the area of stenosis and dilated to 20 atmospheres. The balloon was removed and a 3.5 x 12 mm drug-eluting stent was placed across the area of stenosis and dilated to 18 atmospheres. The balloon was removed with a noncompliant 3.5 x 12 mm balloon was placed in the stent and dilated to 21 atmospheres. Stenosis was reduced from 70% to 0% with normal JESUS flow. The patient has some residual disease in the left main and circumflex artery. Previously when the right coronary artery was stented she was asymptomatic with this. Plans are to observe on medical management. She continues to be symptomatic we will bring her back for high-risk stenting of the distal left main and proximal circumflex artery which may require Impella support even though this is a protected left main. Summary: Successful drug-eluting stent to the In stent restenosis in the proximal RCA. Interval History: This is a 69-year-old white female with a past medical history of hypertension, hyperlipidemia, type 2 diabetes mellitus, hypothyroidism and prior nonsustained VT declining EP study and coronary artery disease status post prior coronary artery bypass graft with LEDESMA to the LAD, saphenous vein graft to the OM2, saphenous vein graft to the PDA and posterolateral branch of the RCA in March of 2019 with progression of disease status post prior PTCA and stent procedures due to occluded grafts. More recently, she developed dyspnea with minimal exertion, episodic dizziness and lip numbness and these were similar symptoms she experienced before her prior bypass. She underwent further assessment as an outpatient with a C CTA which was abnormal and subsequently was admitted on 11/25/2024 for left heart catheterization to further define her coronary anatomy. She underwent the left heart catheterization on 11/25/2024 with findings as noted above. She underwent successful PTCA and stenting with a 3.5 x 12 mm checo Cataño drug-eluting stent to the InStent restenosis of the proximal RCA. She developed mild hematoma and bleeding at the right groin postprocedure and this was treated with manual pressure. This has resolve the hematoma and this morning, her right groin is soft to touch. There is some bruising into the upper thigh/groin. She offers no complaints of groin discomfort. She also offers no chest pain and no dyspnea while up ambulating in the room. Vital signs have remained stable. Hemoglobin of 11.7 with a hematocrit of 35.3 on 11/25/2024 Physical Examination: GENERAL: No acute distress. HEAD: Normal with no signs of head trauma. EYES: PERRLA, EOMI, conjunctiva and sclera normal. NECK: Supple without JVD. There is no tenderness, lymphadenopathy, or masses. No thyromegaly. Normal carotid upstrokes without bruits. LUNGS: Clear breath sounds bilaterally. No wheezes, or rhonchi. HEART: Normal rate and rhythm. Normal S1 and S2 without murmurs, gallop or rub. VASC: Peripheral pulses +2 bilaterally. EXT: No clubbing, cyanosis or edema. Right groin site is soft, there is some bruising extending into the upper thigh and into the groin but the area is soft to touch. Pedal pulses are weak to palpate to the dorsalis pedis but + 2 to the right posterior tibial and +1 to the left posterior tibial NEURO: Awake, alert, and oriented x3. No focal neurological deficits noted. Discharge Medications: Pravastatin 40 mg p.o. q.h.s. Aspirin 81 mg p.o. daily Clopidogrel 75 mg p.o. daily Gabapentin 300 mg p.o. b.i.d. Levothyroxine 125 mcg daily Lisinopril 40 mg p.o. b.i.d. Nitrostat 0.4 mg as needed Acebutolol 200 mg p.o. b.i.d. Glimepiride 4 mg p.o. b.i.d. Metformin 1000 mg p.o. b.i.d. to be resumed 11/27/2024 Lantus insulin 30 units subQ daily and 100 units q.p.m. Discharge Follow-up: Follow-up at [facility] with Dr. Eyad Hutson in one-week Discharge Recommendations: No heavy lifting, pushing, pulling or driving for 3 days Compliance with dual antiplatelet therapy, heart healthy diet and efforts at reestablishing a walking/aerobic activity program Follow-up with Dr. Eyad Hutson in one-week [facility] if any issues arise at the right groin PHYSICIAN ATTESTATION OF PHYSICIAN TRUCK DRIVER SUPERVISOR DOCUMENTATION: I attest that I reviewed and discussed the case with the Physician Reimbursement Auditor and made modifications to the Physician Reimbursement Auditor's findings and plans of care as documented above JOSEF RICCI Nov 26, 2024 11:36 TIANNA SMALLS MD Nov 27, 2024 15:20
[2024-11-26] MEDS ORDERED: CLOP75TA32 PO (11:39)
--- NOTE | 2024-11-26 11:40 | NUR ---
DCP: HOME Pt currently lives with Nic Carson [phone] in their home. Pt does not have any insecurities with food, care home, and/or utilities. Pt does not have any DME, home health, or provider services. Pt is able to complete ADLs independently. PCP is Dr. Jeffry Corrales and uses [facility] for any RX needs. At MD pt will return home and family will assist with transportation. Addendum: 11/26/24 at 1142 by RUDDY NIX SS Amended: Links added.
[2024-11-26 12:00] VITALS: BP 146/64; PULSE 69; RESP 16; TEMP 98.2
== END 2024-11-26 13:25 | disposition home or self-care (01) ==
LOC: DAH 06:02 → DAHIP 06:03 → DAH 06:03 → 2AH 09:25
PROVIDERS: ADMIT Internal Medicine Cardiovascular Disease; ATTEND Internal Medicine Cardiovascular Disease
DX: I25.810 Atherosclerosis of coronary artery bypass graft(s) without angina pectoris (principal); T82.855A Stenosis of coronary artery stent, initial encounter; I10 Essential (primary) hypertension; E78.5 Hyperlipidemia, unspecified; E11.9 Type 2 diabetes mellitus without complications; E03.9 Hypothyroidism, unspecified; I65.22 Occlusion and stenosis of left carotid artery; I49.3 Ventricular premature depolarization; I25.2 Old myocardial infarction; Z86.2 Personal history of diseases of the blood and blood-forming organs and certain disorders involving the immune mechanism; Z79.899 Other long term (current) drug therapy; Z95.1 Presence of aortocoronary bypass graft; Z88.8 Allergy status to other drugs, medicaments and biological substances; Y83.1 Surgical operation with implant of artificial internal device as the cause of abnormal reaction of the patient, or of later complication, without mention of misadventure at the time of the procedure
CPT/HCPCS: 80048; 83880; 85025; 85610; 85730 ×3; 81001; 36415 ×2; 71045; 93005; 93459; 93571; 99156; 99157 ×4; 96374; 96376; 96375; 84132; 85347; 85014 ×2; 85018 ×2; 82948 ×5; C1769 ×2; C1887; C1894; C1725; C1874; Q9965; G0378 ×28; J3010; J3490 ×2; J1644 ×3; J2250 ×2; J2405 ×2; J2270; Q9967; A4215; A4223 ×3; A4222; A4221; A4663; A4216; A4606; C9600; J0461

== ENCOUNTER → 2024-12-28 | Outpatient (CLI) | payer MEDICARE ==
[~2024-12-28] MED LIST changes: +CLOP75TA32 PO
[2024-12-28 15:30] LABS: IMMATURE GRANULOCYTE ABSOLUTE 0.02 K/uL (0-1); NUCLEATED RED BLOOD CELLS 0.0 % (0.0-0.19); PLATELET COUNT (AUTO) 249 K/uL (130-400); RED BLOOD CELL COUNT(AUTO) 4.00 MIL/uL (4.00-5.50); RED CELL DISTRIBUTION WIDTH 12.0 % (11.0-15.5); WHITE BLOOD COUNT (AUTO) 5.6 K/uL (4.8-10.8)
[2024-12-28 15:41] LABS: ASPARTATE AMINOTRANSFERASE 22.0 U/L (10-37); CREATININE 0.9 mg/dL (0.5-1.0); GLOMERULAR FILTR. RATE CALC 70.0 mL/min (>90); GLUCOSE,RANDOM 330.0 mg/dL (70-105); SODIUM SERUM 138.0 mmol/L (136-145); TOTAL PROTEIN, SERUM 7.8 g/dL (6.0-8.3); UREA NITROGEN, BLOOD 19.0 mg/dL (7-18)
[2024-12-28 16:07] LABS: APPEARANCE,URINE CLEAR (CLEAR); GLUCOSE, URINE (UA) >=1000 mg/dL (NEGATIVE); LEUKOCYTE ESTERASE ,URINE NEGATIVE Leu/uL (NEGATIVE); NITRATE,URINE NEGATIVE (NEGATIVE); OCCULT BLOOD,URINE NEGATIVE (NEGATIVE)
[2024-12-28 16:12] LABS: ADD UA MICROSCOPIC YES
[2024-12-28 16:13] LABS: SQUAMOUS EPITHELIAL CELL,UR RARE /HPF (0-2)
[2025-01-01 14:10] LABS: C DIFFICILE TOXIN A/B Detected (Not Detected); ENTEROAGGREGATIVE ECOLI Not Detected (Not Detected); GIARDIA LAMBLIA Not Detected (Not Detected); PLESIOMONAS SHIGELOIDES Not Detected (Not Detected); SAPOVIRUS Not Detected (Not Detected); SHIGELLA/ENTEROINVASIVE E COLI Not Detected (Not Detected); VIBRIO Not Detected (Not Detected); VIBRIO CHOLERAE Not Detected (Not Detected)
== END | disposition home or self-care (01) ==
LOC: LAB 14:24
PROVIDERS: ATTEND Internal Medicine
DX: R19.7 Diarrhea, unspecified (principal); R30.0 Dysuria; R10.13 Epigastric pain; R11.0 Nausea; R12 Heartburn; R63.4 Abnormal weight loss; I10 Essential (primary) hypertension; K21.00 Gastro-esophageal reflux disease with esophagitis, without bleeding; K57.30 Diverticulosis of large intestine without perforation or abscess without bleeding; E11.9 Type 2 diabetes mellitus without complications; Z79.899 Other long term (current) drug therapy
CPT/HCPCS: 36415; 80053; 81001; 82656; 85025; 86140; 87086; 87507

== ENCOUNTER → 2025-01-02 | Outpatient (CLI) | payer MEDICARE ==
--- NOTE | 2025-01-02 13:56 | HMCIMG ---
UPPER GI TRACT, WO KUB INDICATION: Heartburn/Dysphagia, unspecified/ FINDINGS: Examination was performed in standard fashion and shows the esophagus has normal caliber and peristalsis throughout. The stomach has normal size, shape and is in normal position. There is delayed gastric emptying Barium flows freely through the pylorus and into normal-appearing duodenal bulb and sweep. The angle of Treitz lies to the left of midline. Gastroesophageal reflux reaching the mid esophagus is noted during the examination. Patient has sternal wire from prior median sternotomy with cardiac revascularization procedure. There are surgical clips in the right upper quadrant from prior cholecystectomy. FLUORO TIME: 1.0. IMPRESSION: Gastroesophageal reflux, otherwise unremarkable examination. There is delayed gastric emptying suggesting of gastroparesis.
== END | disposition home or self-care (01) ==
LOC: RAH 09:53
PROVIDERS: ATTEND Internal Medicine
DX: K21.9 Gastro-esophageal reflux disease without esophagitis (principal); R12 Heartburn; R13.10 Dysphagia, unspecified; R63.4 Abnormal weight loss
CPT/HCPCS: 74240

== ENCOUNTER → 2025-01-20 | Outpatient (CLI) | payer MEDICARE ==
--- NOTE | 2025-01-24 08:40 | HMCIMG ---
EXAM: Nuclear Medicine Gastric Emptying Scan. INDICATION: Epigastric pain, nausea, and vomiting. REFERENCE EXAMINATION: None TECHNIQUE: 2.1 mCi of Tc99m sulfur colloid with egg whites, 2 slices of bread/jam, 4 ounces of water. FINDINGS: Transit of radiopharmaceuticals is seen from the stomach into the small bowel. 50% gastric emptying was achieved at 79 minutes. IMPRESSION: Scintigraphic findings suggest normal gastric emptying. /Anthon
== END | disposition home or self-care (01) ==
LOC: RAH 07:21
PROVIDERS: ATTEND Internal Medicine
DX: R10.13 Epigastric pain (principal); R11.0 Nausea
CPT/HCPCS: 78264; A9541

== ENCOUNTER → 2025-01-23 | Outpatient (CLI) | payer MEDICARE | END | disposition home or self-care (01) | LOC: LAB 11:40 | PROVIDERS: ATTEND Internal Medicine | DX: E03.9 Hypothyroidism, unspecified (principal) | CPT/HCPCS: 36415; 84439; 84443 ==

== ENCOUNTER → 2025-02-28 | Outpatient (CLI) | payer MEDICARE ==
--- NOTE | 2025-02-28 14:15 | NUR ---
MBSS COMPLETED (OUTPATIENT). PATIENT DID NOT ASPIRATE WITH ANY TRIALED CONSISTENCY. PATIENT DID PRESENT WITH DEEP TRANSIENT PENETRATION WITH THIN LIQUIDS VIA CUP DURING SWALLOW WITH LARGE SIP. RECOMMENDATIONS: Easy to chew solids and thin liquids. Crushed meds in puree. COMPENSATORY STRATEGIES: 1. Small bites/sips 2. Alternate bites/sips 3. Sit upright DIAGNOSTIC FINDINGS: Patient presents within functional limits for oral and pharyngeal phases of swallowing. The patient did present with one instance of deep transient penetration with large bolus of thin liquids by cup during swallow, not observed when using small sips. There was no aspiration with any presented texture or consistency for duration of swallow study. The patient did however present with repeated throat clearing which does not appear to be the result of penetration or aspiration. May want to consider GI consult due to patient's complaints of food "filling in my throat and making it hard to swallow" while pointing to upper esophageal region. STRING CUTTER reviewed results and recommendations for GI consult with the patient. STRING CUTTER educated the patient on safe swallow strategies. Speech therapy is not warranted at this time. Addendum: 02/28/[address] [facility] Amended: Links added.
--- NOTE | 2025-03-02 14:31 | HMCIMG ---
MODIFIED BARIUM SWALLOW W CINE REASON: Gastro-esophageal reflux disease with esophagitis, without bleeding FINDINGS: Fluoroscopic assistance was provided to the speech pathologist while performing examination. For findings and dietary recommendations, refer to speech pathologist's report. FLUORO TIME: Fluoroscopy time 3.0 minutes. IMPRESSION: Modified barium swallow as described.
== END | disposition home or self-care (01) ==
LOC: RAH 13:25
PROVIDERS: ATTEND Internal Medicine
DX: K21.00 Gastro-esophageal reflux disease with esophagitis, without bleeding (principal); R13.10 Dysphagia, unspecified
CPT/HCPCS: 74230; 92611